=== PATIENT | male | born 1970 | race Caucasian/White ===

== ENCOUNTER 2017-02-10 | Emergency (ER) | payer OTHER ==
[2017-02-10 00:23] VITALS: BP 164/98; RESP 18; TEMP 97.7
--- NOTE | 2017-02-10 00:34 | EDPHY ---
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 He denies fever. Denies trouble swallowing. Denies chest pain or shortness of breath. He checked in with his fiancee who also has a sore throat. He thinks that she may have strep. Past Medical History: Reduced ejection fraction Past Surgical History: Denies significant surgical history Social History: Denies daily use drugs alcohol tobacco products. Family History: Noncontributory. ROS REVIEW OF SYSTEMS: A comprehensive 10 point review of systems is otherwise negative aside from elements mentioned in the history of present illness. Exam Constitutional appears well nontoxic triage nursing summary reviewed, vital signs reviewed, awake/alert. Eyes normal conjunctivae and sclera, EOMI, PERRLA. HENT posterior pharynx is erythematous without any significant exudate, no significant tonsillar bed swelling, uvula midline. No signs of Vignesh's. moist mucus membranes, no epistaxis, neck supple/ no meningismus, no raccoon eyes. Respiratory clear to auscultation bilaterally, normal breath sounds, no respiratory distress, no wheezing. Cardiovascular rate normal, regular rhythm, no murmur, no edema, distal pulses normal. Gastrointestinal soft, non-tender, no rebound, no guarding, normal bowel sounds, no distension, no pulsatile mass. Genitourinary no CVA tenderness. Musculoskeletal no midline vertebral tenderness, full range of motion, no calf swelling, no tenderness of extremities, no meningismus, good pulses, neurovascularly intact. Skin pink, warm, & dry, no rash, skin atraumatic. Neurologic awake, alert and oriented x 3, AAOx3, moves all 4 extremities equally, motor intact, sensory intact, CN II-XII intact, normal cerebellar, normal vision, normal speech. Psychiatric normal mood/affect. Heme/Lymph/Immune no lymphadenopathy. Differential Diagnosis: Includes but is not limited to in a particular order, viral syndrome, viral pharyngitis, strep pharyngitis, mono Medical Decision Making: Plan for this patient check rapid strep. Re-evaluation: 1238: Patient's throat is erythematous. Will cover for strep is about to travel. He has no known drug allergies will give 1st dose of amoxicillin here. Rapid strep is pending. Will give a prescription for amoxicillin as well. Return precautions discussed with the patient. He appears well nontoxic understands return emergency room if develops worsening throat pain, fever, vomiting. Source: Patient - Personal History Current Tetanus/Diphtheria Vaccine: Yes Current Tetanus Diphtheria and Acellular Pertussis (TDAP): Yes - Medical/Surgical History Hx Asthma: No Hx Chronic Respiratory Disease: No Hx Diabetes: No Hx Cardiac Disease: No Hx Renal Disease: No Hx Cirrhosis: No Hx Alcoholism: No Hx HIV/AIDS: No Hx Splenectomy or Spleen Trauma: No Other PMH: cyst removal to buttocks at 15 - Social History Smoking Status: Never smoked Constitutional: Initial Vital Signs Temperature (C) 36.5 C 02/10/17 00:18 Heart Rate 92 02/10/17 00:18 Respiratory Rate 18 02/10/17 00:18 Blood Pressure 164/98 H 02/10/17 00:18 O2 Sat (%) 96 02/10/17 00:18 O2 Delivery Mode Room Air Allergies/Adverse Reactions: No Known Allergies Allergy (Unverified 02/10/17 00:17) Home Medications: Medication Instructions Recorded Amoxicillin Trihydrate 500 mg PO TID 7 Days cap 02/10/17 [Amoxicillin] Coreg 02/10/17 Lisinopril 02/10/17 Departure - Departure Disposition: Home, Routine, Self-Care Clinical Impression: Acute pharyngitis Condition: Good Instructions: Strep Throat (ED), Pharyngitis (ED) Additional Instructions: 1. Drink lots of fluids stay well-hydrated. 2. Amoxicillin as prescribed. 3. Return to the emergency room if there is worsening symptoms questions or concerns. Referrals: MINNIE GLASS [Other] - As per Instructions Prescriptions: Amoxicillin Trihydrate [Amoxicillin] 500 mg PO TID 7 Days cap
[2017-02-10] MEDS ORDERED: AMOXICILLIN 250 MG PREPACK#4 BTL TAKEHOME ONE (00:39)
[2017-02-10 01:34] VITALS: PULSE 93; O2SAT 95
== END 2017-02-10 01:20 | disposition home or self-care (01) ==
DX: J02.9 Acute pharyngitis, unspecified (principal)